=== PATIENT | male | born 1945 | race Caucasian/White ===

== ENCOUNTER 2021-11-24 16:20 | Inpatient (IN) | payer MEDICARE, OTHER ==
[~2021-11-24] VITALS: Ht 180.3 cm; Wt 88.0 kg
[~2021-11-24 16:20] MED LIST: LISINOPRIL20 MG PO
[2021-11-24 18:54] LABS: HEMOGLOBIN 12.9 gm/dl (14.0-17.5); RED BLOOD COUNT 4.69 M/UL (4.20-5.50); WHITE BLOOD COUNT 12.8 K/UL (4.5-11.0)
[2021-11-24 19:42] LABS: BUN/CREATININE RATIO 27 (0-10)
--- NOTE | 2021-11-25 00:52 | NUR ---
PT DOESNT HAVE MEDICATION BOTTLES WITH HIM. PHARMACY TO COMPLETE HOME MED REC IN AM. WILL CONTINUE TO MONITOR.
--- NOTE | 2021-11-25 01:03 | NUR ---
NOTIFIED DR MOTA TO SEE IF HE WANTED PT TO BE PLACED ON TELE AND PULSE OX. HE STATED THAT HE DID NOT. WILL CONTINUE TO MONITOR.
[2021-11-25 06:24] LABS: HEMOGLOBIN 11.9 gm/dl (14.0-17.5); RED BLOOD COUNT 4.37 M/UL (4.20-5.50); WHITE BLOOD COUNT 10.3 K/UL (4.5-11.0)
[2021-11-25 06:54] LABS: BUN/CREATININE RATIO 25 (0-10)
[2021-11-25] MEDS ORDERED: LEVOFLOXACIN500 MG PO (10:07)
[2021-11-25] MEDS ORDERED: MEDROL4 MG PO (10:07)
[2021-11-25] MEDS ORDERED: ECOTRIN81 MG PO (12:13)
[2021-11-25] MEDS ORDERED: PERFOROMIS20 MCG/2 M INH (12:13)
[2021-11-25] MEDS ORDERED: YUPELRI175 MCG/3 NEB (12:14)
[2021-11-25] MEDS ORDERED: BUDESONIDE0.5 MG/2 M INH (12:14)
[2021-11-25] MEDS ORDERED: ALBUTEROL2.5 MG/3 M NEB (12:16)
[2021-11-26 03:05] LABS: HEMOGLOBIN 12.2 gm/dl (14.0-17.5); RED BLOOD COUNT 4.52 M/UL (4.20-5.50)
[2021-11-26 03:16] LABS: WHITE BLOOD COUNT 13.3 K/UL (4.5-11.0)
[2021-11-26 03:24] LABS: BUN/CREATININE RATIO 30 (0-10)
[2021-11-26] MEDS ORDERED: GLUCOPHAGE 500500 MG PO (09:26)
== END 2021-11-26 13:35 | disposition home or self-care (01) | DRG 871 ==
LOC: ER1 16:20 → M/S 22:50 → CDU 22:50 → M/S 11-25 00:15
PROVIDERS: Family Medicine; Internal Medicine; Physician Assistant; ADMIT Internal Medicine
DX: A41.9 Sepsis, unspecified organism (principal); J96.21 Acute and chronic respiratory failure with hypoxia; J18.9 Pneumonia, unspecified organism; J96.22 Acute and chronic respiratory failure with hypercapnia; J44.0 Chronic obstructive pulmonary disease with (acute) lower respiratory infection; J44.1 Chronic obstructive pulmonary disease with (acute) exacerbation; Z20.822 Contact with and (suspected) exposure to COVID-19; E11.65 Type 2 diabetes mellitus with hyperglycemia; R65.20 Severe sepsis without septic shock; E66.9 Obesity, unspecified; I25.10 Atherosclerotic heart disease of native coronary artery without angina pectoris; I10 Essential (primary) hypertension; E78.5 Hyperlipidemia, unspecified; Z99.81 Dependence on supplemental oxygen; Z95.1 Presence of aortocoronary bypass graft; Z85.118 Personal history of other malignant neoplasm of bronchus and lung; Z91.040 Latex allergy status; Z98.890 Other specified postprocedural states; Z98.41 Cataract extraction status, right eye; Z87.891 Personal history of nicotine dependence; Z79.899 Other long term (current) drug therapy; Z79.82 Long term (current) use of aspirin; Z79.4 Long term (current) use of insulin; Z68.27 Body mass index [BMI] 27.0-27.9, adult
CPT/HCPCS: 0240U; 36415; 36600; 71045; 80048; 80053; 82550; 82553; 82803; 82962; 83036; 83605; 83735; 83880; 84484; 85025; 85610; 87040; 93005; 94640; 94664; 94760; 96374; 96375; 97161; 97166; 97535; 99285; J0456; J0696; J1650; J2920; J7030

== ENCOUNTER → 2021-12-18 | Outpatient (CLI) | payer MEDICARE, OTHER ==
[~2021-12-18] MED LIST changes: +ALBUTEROL2.5 MG/3 M NEB; +BUDESONIDE0.5 MG/2 M INH; +ECOTRIN81 MG PO; +GLUCOPHAGE 500500 MG PO; +LEVOFLOXACIN500 MG PO; +MEDROL4 MG PO; +PERFOROMIS20 MCG/2 M INH; +YUPELRI175 MCG/3 NEB
== END ==
LOC: HEART 5 13:27
DX: R06.02 Shortness of breath (principal); R94.2 Abnormal results of pulmonary function studies
CPT/HCPCS: 94060; 94729

== ENCOUNTER → 2022-01-01 | Outpatient (CLI) | payer MEDICARE, OTHER | LOC: KOH-I 12-25 15:00 | DX: R06.02 Shortness of breath (principal); J44.9 Chronic obstructive pulmonary disease, unspecified | CPT/HCPCS: 71250 ==

== ENCOUNTER → 2022-03-03 | Outpatient (CLI) | payer MEDICARE, OTHER | LOC: HEART 5 08:00 | DX: I25.10 Atherosclerotic heart disease of native coronary artery without angina pectoris (principal); R06.02 Shortness of breath; I11.9 Hypertensive heart disease without heart failure | CPT/HCPCS: 93306 ==

== ENCOUNTER → 2022-04-16 | Outpatient (CLI) | payer MEDICARE, OTHER | LOC: RT 14:53 | DX: J96.11 Chronic respiratory failure with hypoxia (principal); J96.12 Chronic respiratory failure with hypercapnia | CPT/HCPCS: 36600; 82803 ==

== ENCOUNTER → 2022-05-05 | Outpatient (CLI) | payer MEDICARE, OTHER | LOC: KOH-I 11:18 | DX: R91.1 Solitary pulmonary nodule (principal) | CPT/HCPCS: 71250 ==